=== PATIENT | female | born 1990 | race Caucasian/White ===

== ENCOUNTER 2017-01-23 14:19 | Emergency (ER) | payer MEDICAID, OTHER ==
[~2017-01-23] VITALS: Ht 167.6 cm; Wt 84.5 kg
[2017-01-23 14:29] VITALS: BP 129/86; PULSE 94; RESP 18; O2SAT 98
[2017-01-23 15:23] LABS: BASOPHILS % (AUTO) 0.6 % (0-3); EOSINOPHILS % (AUTO) 1.3 % (0-5); MONOCYTES % (AUTO) 11.2 % (4-12); Mean Corpuscular Volume 92.9 fL (81-100); NEUTROPHILS % (AUTO) 61.7 % (40-74); Platelet Count 284 bil/L (150-400)
--- NOTE | 2017-01-23 15:48 | ED.REPORT ---
HPI-General Illness Date of Service Jan 23, 2017 ED Provider: Michael Henderson MD Patient is a 26 year old female who presents to the ED complaining of nausea on and off for the last month. Associated symptoms include a sharp intermittent headache and diarrhea. She denies abdominal pain, dysuria, fevers, neck pain, dysphagia, vision changes, or any other symptoms. Her last period was in 2014 due to being on control. Nursing Notes Stated Complaint: NAUSEA FOR PAST MONTH Chief Complaint: General Complaint Nursing Notes Reviewed: Yes Allergies: Coded Allergies: No Known Allergies (Unverified Allergy, Unknown, 01/23/17) Scheduled Cephalexin (Keflex) 500 Mg Capsule 500 MG PO QID Scheduled PRN Ondansetron ODT (Zofran ODT) 4 Mg Tablet 4 MG PO Q4H PRN PRN For Nausea General Time Seen by MD: 15:47 Chief Complaint Other (Nausea) Hx Obtained From: Patient Arrived By: Walk-in Onset Occurred: More than a week ago... (1 month) Symptom Duration: Since onset Past Medical History Past Medical History Healthy Past Surgical History Denies Smoking History Unknown if Ever Smoker Social History Other Social History: Homeless Ambulatory Status Independent Review of Systems Full Review of Systems Constitutional: Denies: Fever GI: Reports: Diarrhea, Nausea, Denies: Abdominal pain, Dysphagia Female: Denies: Dysuria Musculoskeletal: Denies: Back pain, Neck pain Neurologic: Reports: Headache, Denies: Vision change Complete sys rev & neg: except as marked. Physical Exam Vital Signs Vital Signs Date Time Temp Pulse Resp B/P Pulse Ox O2 Delivery O2 Flow Rate FiO2 01/23/17 16:35 90 20 129/81 01/23/17 14:29 36.7 94 18 129/86 98 Room Air General/Constitutional: Well-developed, Well-nourished Head / Eyes: Atraumatic, Normocephalic Neck: Full range of motion Respiratory: Breath sounds normal, Clear to auscultation, No respiratory distress Cardiovascular: Regular rate & rhythm, Heart sounds normal Abdomen / GI: Soft, Non-tender, No guarding, No rebound Back: No CVA tenderness Skin: Warm, Dry Neurologic: Alert, Oriented, Nonfocal Psychiatric: Mood/affect normal, Behavior normal, Normal thought content Neurologic: Oriented X3, Speech NL, CN II - XII intact Interpretation & Diagnostics Lab Results Interpretation Result Diagram: 01/23/17 1512 01/23/17 1512 Test 01/23/17 15:12 01/23/17 16:00 White Blood Count 7.1th/mm3 (3.8-10.1) Red Blood Count 4.68mil/mm3 (3.90-5.20) Hemoglobin 14.5g/dL (12.0-15.6) Hematocrit 43.5% (35.0-46.0) Mean Corpuscular Volume 92.9fL (81-100) Mean Corpuscular Hemoglobin 31.0pg (27.0-35.0) Mean Corpuscular Hemoglobin Concent 33.3% (32.0-37.0) Red Cell Distribution Width 12.4% (12.3-15.4) Platelet Count 284bil/L (150-400) Neutrophils (%) (Auto) 61.7% (40-74) Lymphocytes (%) (Auto) 25.1% (14-46) Monocytes (%) (Auto) 11.2% (4-12) Eosinophils (%) (Auto) 1.3% (0-5) Basophils (%) (Auto) 0.6% (0-3) Sodium Level 142mEq/L (134-144) Potassium Level 3.6mEq/L (3.5-5.2) Chloride Level 106mEq/L (97-108) Carbon Dioxide Level 22mmol/L (18-29) Blood Urea Nitrogen 6mg/dL (6-20) Creatinine 0.62mg/dL (0.57-1.00) Estimat Glomerular Filtration Rate 168mL/min (>59) Glucose Level 98mg/dL (60-99) Calcium Level 9.8mg/dL (8.5-10.1) Magnesium Level 2.2mg/dL (1.6-2.6) Total Bilirubin 0.4mg/dL (0.0-1.2) Aspartate Amino Transf (AST/SGOT) 24U/L (0-50) Alanine Aminotransferase (ALT/SGPT) 32U/L (0-32) Alkaline Phosphatase 76U/L (25-150) Total Protein 7.6g/dL (6.4-8.4) Albumin 4.3g/dL (3.4-5.0) Hold Urine Received (Received) Re-Eval/Medical Decision Med Decision/Clinical Course UTI. Antibiotics as below. Return precautions given. Time of Eval: 16:24 Re-Evaluation/Progress Note: Rechecked patient. Discussed plan for discharge. Patient understands and agrees with plan. All questions addressed at this time. Counseled Regarding: Diagnosis, Lab results, Need for follow-up, When/why to return to ED Discharge & Departure Primary Impression: UTI (urinary tract infection) Encounter type: initial encounter Disposition: Home Discharge Condition All VS Reviewed: Yes Condition: Stable Patient Instructions: Urinary Tract Infection in Women (ED) Additional Instructions: You have a UTI. Take ondansetron as needed for nausea. Take Keflex as prescribed to treat the UTI. Return to the emergency department if you experience increased abdominal pain, nausea, vomiting, back pain, fever or any other new or worsening symptoms. Referrals: Estrella Mcintosh CNM (PCP) Scribe Attestation Portions of this note were transcribed by Jayjay Hansen. I, Dr. Henderson personally performed the history, physical exam and medical decision-making; I reviewed and confirmed the accuracy of the information in the transcribed note. Signed by: Jayjay Hansen 01/23/2017, [id number] copies to: Estrella Mcintosh CNM, Ben M MD Jan 23, 2017 15:48 JAYJAY HANSEN Jan 23, 2017 15:56
[2017-01-23 15:54] LABS: Magnesium 2.2 mg/dL (1.6-2.6)
[2017-01-23] MEDS ORDERED: ONDA4TAB9 PO (16:12)
[2017-01-23] MEDS ORDERED: CEPH-512 PO (16:12)
[2017-01-23 16:35] VITALS: BP 129/81; PULSE 90; RESP 20
== END 2017-01-23 16:23 | disposition home or self-care (01) ==
LOC: SED 14:19
DX: N39.0 Urinary tract infection, site not specified (principal)